=== PATIENT | male | born 1995 | race Caucasian/White ===

== ENCOUNTER 2017-06-08 11:00 | Emergency (ER) | payer BC ==
[2017-06-08] MEDS ORDERED: NEOMYCIN/POLYMYXIN B SULF/HC 10ML BTL OT ONE (11:11)
--- NOTE | 2017-06-08 11:17 | Emergency Department Record ---
History of Present Illness - General Stated complaint: LEFT EAR PAIN Time Seen by Provider: 06/08/17 11:11 Source: Patient Mode of Arrival: Ambulatory Limitations: No limitations - History of Present Illness Initial comments: 21 yo male presents with bilateral ear irritation. He has noted discomfort then blood on Qtips. No fever. No pus. No hearing loss. He uses ear buds a lot to listen to music. MD complaint: Ear pain -: Days(s) Location: R ear, L ear Severity: Mild Quality: Aching Consistency: Constant Improves with: None Worsens with: Other (qtip use) - Related Data Previous Rx's Medication Instructions Recorded Neomycin/Polymyxin B Sulf/Hc 2 drop AFFEAR QID #10 ml 06/08/17 [Cortisporin Otic] Allergies Allergy/AdvReac Type Severity Reaction Status Date / Time No Known Drug Allergies Allergy Verified 06/08/17 11:19 Review of Systems Constitutional: Denies: Chills, Fever, Malaise Eyes: Denies: Eye discharge, Eye pain, Photophobia, Vision change ENT: Reports: Ear pain. Denies: Congestion, Dental pain, Epistaxis, Throat pain Respiratory: Denies: Cough Cardiovascular: Denies: Chest pain Endocrine: Denies: Fatigue Gastrointestinal: Denies: Abdominal pain, Diarrhea, Nausea, Vomiting Genitourinary: Denies: Dysuria, Frequency, Hematuria Musculoskeletal: Denies: Arthralgia, Myalgia Skin: Denies: Bruising, Change in color, Rash Neurological: Denies: Headache, Numbness, Weakness Psychiatric: Denies: Anxiety Hematological/Lymphatic: Denies: Easy bleeding, Easy bruising Physical Exam - General General Appearance: Alert, Oriented x3, Cooperative, No acute distress Limitations: No limitations - Head Head exam: Normal inspection - Eye Eye exam: Normal appearance, PERRL. negative: Conjunctival injection, Scleral icterus - ENT ENT exam: TM's normal bilaterally (normal TM's without blood or redness). negative: Normal external ear exam Ear exam: External canal tenderness (erythema on the left with dried blood, intact TM, right is minimally red). negative: Normal external inspection, Auricular hematoma, Auricular trauma Nasal Exam: Normal inspection Mouth exam: Normal external inspection Teeth exam: Normal inspection Throat exam: Normal inspection - Neck Neck exam: Normal inspection. negative: Lymphadenopathy, Tenderness - Respiratory Respiratory exam: Normal lung sounds bilaterally. negative: Respiratory distress - Cardiovascular Cardiovascular Exam: Regular rate, Normal rhythm, Normal heart sounds - Rectal Rectal exam: Deferred - exam: Deferred - Extremities Extremities exam: Normal inspection - Neurological Neurological exam: Alert, Oriented X3 - Psychiatric Psychiatric exam: Normal affect, Normal mood - Skin Skin exam: Dry, Intact, Normal color, Warm Course - Reevaluation(s) Reevaluation #1: 06/08/17 11:16 Cortisporitn otic given for mild OE He was advised not to place any foreign object in the ears Disposition Disposition: Discharge Clinical Impression: Otitis externa Qualifiers: Otitis externa type: unspecified type Chronicity: acute Laterality: bilateral Qualified Code(s): H60.503 - Unspecified acute noninfective otitis externa, bilateral Disposition: Home, Self-Care Condition: (1) Good Instructions: Otitis Externa (ED) Additional Instructions: Use the the drops 4 times a day Do not use Qtips or place anything in your ear See your doctor for a recheck in the next 1 week to ensure improvement Return if worse, fever, swollen Prescriptions: Neomycin/Polymyxin B Sulf/Hc [Cortisporin Otic] 2 drop AFFEAR QID #10 ml Forms: Patient Portal Access Time of Disposition: 11:13 Quality - Quality Measures Quality Measures: N/A - Blood Pressure Screening Does Patient Have Any of the Following: No Blood Pressure Classification: Normal BP Reading Systolic Measurement: 119 Diastolic Measurement: 77 Screening for High Blood Pressure: < Normal BP, F/U Not Required > [G8783]
== END 2017-06-08 11:30 | disposition home or self-care (01) ==
LOC: ER 11:00
DX: H60.503 Unspecified acute noninfective otitis externa, bilateral (principal)
CPT/HCPCS: 99282